=== PATIENT | male | born 1960 | race Caucasian/White ===

== ENCOUNTER 2018-07-31 13:10 | Outpatient (CLI) | payer BC ==
--- NOTE | 2018-07-31 15:42 | RAD ---
AP, LATERAL, FLEXION AND EXTENSION VIEWS LUMBAR SPINE: 07/31/18 HISTORY: Lumbar radiculopathy. Four views lumbar spine demonstrate what appears to be six nonribbearing lumbar vertebrae. There appe ars to be partial sacralization of the transitional type vertebrae. Disc space height loss is seen at the L4-5 and L5-S1 intervertebral disc spaces. There is mild levoscoliosis centered at the L4 level. IMPRESSION: 1. Lower lumbar disc degenerative changes with disc space height loss as well as anterior and po sterior osteophytes. 2. No evidence of diana or retrolisthesis seen on flexion or extension views. POS: [facility]
--- NOTE | 2018-07-31 17:25 | MRI ---
LUMBAR SPINE MRI NONCONTRAST: 07/31/18 INDICATION: Acute lumbar radiculitis. FINDINGS: There is end plate marrow edema of L2, L3, and L4 favoring Modic type I degenerative process. No sign ificant subluxation. There is transitional lumbosacral segment, deemed a lumbarized S1 placing iliolu mbar ligaments at the anatomic L5 position. L5-S1: Broad based disc osteophyte results in mild effacement of ventral thecal sac. There is mild bi lateral neural foraminal stenosis. L4-5: Mild to moderate central canal stenosis present crowding of the bilateral traversing L5 nerve r oots due to broad based disc osteophyte. Mild right foraminal narrowing is present. No significant le ft foraminal narrowing. L3-4: Mild central canal stenosis present due to broad based disc osteophyte. 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 No significant left foraminal stenosis. L2-3: Mild narrowing of the central canal due to broad based disc osteophyte and mild narrowing of ea ch subarticular zone. There is no high grade left foraminal narrowing. Mild right neural foraminal na rrowing. L1-2: No significant compromise of central canal or neural foramina. There is appropriate level of termination of the conus medullaris at the L1 level. The imaged retrope ritoneum reveals incompletely assessed T2 hyperintensities of each kidney. There is moderate multilev el bilateral degenerative facet hypertrophy. Evaluation is limited by the degree of the persistent patient motion throughout the exam. IMPRESSION: Multilevel degenerative change throughout the lumbar spine, as outlined above. POS: [facility]
== END 2018-07-31 13:11 | disposition home or self-care (01) ==
LOC: BICMRI 13:10
PROVIDERS: ATTEND Anesthesiology Pain Medicine
DX: M51.16 Intervertebral disc disorders with radiculopathy, lumbar region (principal); M47.26 Other spondylosis with radiculopathy, lumbar region
CPT/HCPCS: 72110; 72148